=== PATIENT | male | born 1975 | race Caucasian/White ===

== ENCOUNTER 2022-03-17 00:10 | Inpatient (IN) | payer OTHER ==
[~2022-03-17] VITALS: Ht 175.3 cm; Wt 106.6 kg
--- NOTE | 2022-03-17 00:45 | NUR ---
Patient walked in to ED c/o swollen testicles for 2-3 days. at bedside.
--- NOTE | 2022-03-17 01:00 | NUR ---
Seen and examined by ED Dr. Rosenberg for [facility] [place].
[2022-03-17] MEDS ORDERED: ONDANSETRON 4 MG/2 ML VIAL IV ONE (01:15)
[2022-03-17] MEDS ORDERED: PIPERACILLIN SODIUM/TAZOBACTAM 3.375 G in IV DEXTROSE 5% 50 ML IV ONE (01:15)
[2022-03-17] MEDS ORDERED: VANCOMYCIN IV 1,000 MG in IV DEXTROSE 5% 250 ML IV ONE (01:15)
[2022-03-17] MEDS ORDERED: HYDROMORPHONE 1 MG/1 ML DISP.SYRIN IV ONE ×2 (01:15→11:30)
--- NOTE | 2022-03-17 01:30 | NUR ---
Lab drawn c/o phleb.
--- NOTE | 2022-03-17 01:30 | NUR ---
Wound culture done and sent to lab.
[2022-03-17] MEDS ORDERED: VANCOMYCIN IV 200 ML ONE (01:53)
[2022-03-17] MEDS ORDERED: PIPERACILLIN/TAZOBACTAM/D5W 50 ML IV ONE (01:53)
[2022-03-17] MEDS ORDERED: ONDANSETRON 4 MG/2 ML VIAL ONE (01:53)
[2022-03-17] MEDS ORDERED: HYDROMORPHONE 1 MG/1 ML DISP.SYRIN ONE ×3 (01:53→11:54)
[2022-03-17 02:05] LABS: HEMATOCRIT 44.5 % (36.7-47.1); MEAN CORPUSCULAR HEMOGLOBIN 29.5 uug (23.8-33.4); MEAN CORPUSCULAR VOLUME 85.7 fL (73.0-96.2); PLATELET COUNT (AUTO) 292 K/uL (152-348)
--- NOTE | 2022-03-17 02:30 | NUR ---
US tech at bedside.
[2022-03-17 02:36] LABS: CARBON DIOXIDE 26 mmol/L (21-32); CHLORIDE 104 mmol/L (98-107); GLUCOSE 125 mg/dL (74-106); POTASSIUM 3.9 mmol/L (3.5-5.1); UREA NITROGEN, BLOOD 19 mg/dL (7-18)
[2022-03-17 02:42] LABS: ALANINE AMINOTRANSFERASE 39 U/L (16-63); ALKALINE PHOSPHATASE 109 U/L (50-136); ASPARTATE AMINOTRANSFERASE 22 U/L (15-37); BILIRUBIN,DIRECT < 0.1 mg/dL (0.0-0.2); BILIRUBIN,TOTAL 0.4 mg/dL (0.2-1.0); TOTAL PROTEIN, SERUM 7.7 g/dL (6.4-8.2)
--- NOTE | 2022-03-17 03:55 | NUR ---
Called [facility] exchange for [facility] panel admission.
--- NOTE | 2022-03-17 04:10 | NUR ---
Dr. Rosenberg on panel call with Priya Grijalva DNP.
[2022-03-17 05:23] LABS: BAND % (MANUAL) 3 % (0-10); EOSINOPHILS % (MANUAL) 3 % (0-8); LYMPHOCYTES % (MANUAL) 32 % (20-40); MONOCYTES % (MANUAL) 8 % (2-10); NEUTROPHILS % (MANUAL) 54 % (42-75)
[2022-03-17] MEDS ORDERED: ACETAMINOPHEN 325 MG TABLET PO PRN (06:45)
[2022-03-17] MEDS ORDERED: HYDROMORPHONE 1 MG/1 ML DISP.SYRIN IV PRN ×2 (06:45→11:37)
[2022-03-17] MEDS ORDERED: MAGNESIUM HYDROXIDE 30 ML LIQUID UDC PO PRN (06:45)
[2022-03-17] MEDS ORDERED: IV NS 1000 ML 1,000 ML IV PRN (06:45)
[2022-03-17] MEDS ORDERED: ONDANSETRON 4 MG/2 ML VIAL IV PRN (06:45)
--- NOTE | 2022-03-17 06:54 | NUR ---
Endorsed to CELY Ortiz. Addendum: 03/17/22 at 0706 by SUMMER Wrong documentation.
--- NOTE | 2022-03-17 07:12 | NUR ---
Endorsed to JAXSON Novoa RN.
[2022-03-17 08:20] LABS: HEMATOCRIT 42.8 % (36.7-47.1); MEAN CORPUSCULAR HEMOGLOBIN 29.2 uug (23.8-33.4); PLATELET COUNT (AUTO) 247 K/uL (152-348)
[2022-03-17 08:28] LABS: PHOSPHOROUS 3.6 mg/dL (2.5-4.9); POTASSIUM 4.3 mmol/L (3.5-5.1)
[2022-03-17] MEDS ORDERED: LIDOCAINE 1%-EPI 1:100,000 20 ML VIAL ONE (08:43)
[2022-03-17] MEDS ORDERED: LIDOCAINE 1%-EPI 1:100,000 20 ML VIAL IJ ONE (08:45)
--- NOTE | 2022-03-17 10:46 | NUR ---
I&D PROCEDURE WAS PERFORMED BY DR FIERRO. PT TOLERATED TO PROCEDURE WITHOUT COMPLICATIONS.
[2022-03-17] MEDS ORDERED: SULF1TAB48 PO (11:38)
[2022-03-17] MEDS ORDERED: SIMV-46 PO (11:38)
[2022-03-17] MEDS ORDERED: HYDR-3972 PO (11:38)
[2022-03-17] MEDS ORDERED: ONDA4TAB11 PO (11:38)
[2022-03-17] MEDS ORDERED: CEPH500C2 PO (11:38)
--- NOTE | 2022-03-17 11:56 | NUR ---
A call to attending as requested by pharmacy to inquire if [facility] schedule for 1300 should be given. As stated by attending Shira Schaeffer. "med can be hold" pharmacist notified.
--- NOTE | 2022-03-17 11:57 | NUR ---
PT WAS EVALUATED BY DR LAGUERRE . PT WAS D/C'd TO HOME. D/C INSTRUCTIONS GIVEN TO THE PT BY DR LAGUERRE.
[2022-03-17] MEDS ORDERED: VANCOMYCIN IV 1,250 MG in IV DEXTROSE 5% 250 ML IV SCH (12:00)
[2022-03-17 12:01] VITALS: BP 139/84
--- NOTE | 2022-03-17 12:35 | NUR ---
DCD instruction instructions given to both pt. and who verbalized understanding. instructed to come back to ER. if conditions gets worse and informed and aware that prescription was sent electronically to pharmacy of choice.
--- NOTE | 2022-03-17 12:37 | NUR ---
HR of 92 sbp of 106/69 RR 18. 98.6
[2022-03-17] MEDS ORDERED: PIPERACILLIN SODIUM/TAZOBACTAM 3.375 G in IV DEXTROSE 5% 50 ML IV SCH (14:00)
== END 2022-03-18 12:35 | disposition home or self-care (01) | DRG 501 ==
LOC: ER 00:15 → TRANSITION 11:34
PROVIDERS: ADMIT Nurse Practitioner Family; ATTEND Nurse Practitioner Family
PROC: 0V95XZZ Drainage of Scrotum, External Approach (ICD-10-PCS; principal; 2022-03-17)
DX: N49.2 Inflammatory disorders of scrotum (principal); D72.829 Elevated white blood cell count, unspecified; E78.5 Hyperlipidemia, unspecified; I25.10 Atherosclerotic heart disease of native coronary artery without angina pectoris; I25.2 Old myocardial infarction; G47.30 Sleep apnea, unspecified; R73.9 Hyperglycemia, unspecified; Z20.822 Contact with and (suspected) exposure to COVID-19; F17.210 Nicotine dependence, cigarettes, uncomplicated; Z71.6 Tobacco abuse counseling
CPT/HCPCS: 36415; 70030-TC; 76870; 83735; 84100; 85025; 85730; 87040; 87070; G0378; J1170; J2405; J2543; J3370; J3490; J7050